=== PATIENT | male | born 1975 | race African-American/Black ===

== ENCOUNTER 2021-05-10 13:18 | Emergency (ER) | payer OTHER ==
[~2021-05-10] VITALS: Ht 188 cm; Wt 93.0 kg
[2021-05-10] MEDS ORDERED: ZOFRAN4 MG PO (13:30)
[2021-05-10] MEDS ORDERED: PROMETHAZINE-D473 M1 PO (13:30)
[2021-05-10] MEDS ORDERED: DEXAMETHASONE0.5 MG PO (13:31)
[2021-05-10] MEDS ORDERED: PROAIR HFA8.5 GM INH (13:31)
[2021-05-10 13:39] LABS: HEMATOCRIT 43.6 % (42.0-52.0); HEMOGLOBIN 14.8 gm/dL (14.0-18.0); MCH 29.1 pg (26.0-34.0); MCHC 33.9 g/dL (28.0-37.0); MCV 85.9 fL (80.0-100.0); MPV 8.3 fl. (7.2-11.1); NUCLEATED RBCS 0 /100WBC; PLATELET COUNT* 199 thou/uL (150-400); RBC 5.08 mil/uL (4.50-6.00); RDW-CV 13.9 % (10.5-14.5); WBC 12.5 thou/uL (4.0-11.0)
[2021-05-10 13:53] LABS: CALCIUM 8.7 mg/dL (8.5-10.1); CREATININE 1.2 mg/dL (0.6-1.3); POTASSIUM 3.9 mmol/L (3.5-5.1)
[2021-05-10 13:57] LABS: ALBUMIN 3.3 g/dL (3.4-5.0); TOTAL BILIRUBIN 0.6 mg/dL (<0.1-1.0); TOTAL PROTEIN 8.1 g/dL (6.4-8.2)
[2021-05-10 14:06] VITALS: BP 128/64
[2021-05-10 14:29] LABS: ABSOLUTE LYMPHOCYTES 0.6 thou/uL (0.8-5.3); ABSOLUTE MONOCYTES 0.3 thou/uL (0.0-1.2); ABSOLUTE NEUTROPHILS 11.6 thou/uL (1.6-8.1)
[2021-05-10 14:30] LABS: PLATELET ESTIMATE ADEQUATE
--- NOTE | 2021-05-11 09:02 | EKG ---
[place] [address] ELECTROCARDIOGRAM REPORT Name: CHRISTIANJEREMIAS R Room: [facility]#: [id number] Admission: 05/10/21 Attend Phys: Discharge: 05/10/21 Date of : 75 Date of Service: 05/10/21 1335 Report #: [id number] THIS REPORT FOR: //name// [facility] ED Test Date: 2021-05-10 Test Time: 13:35:06 Pat Name: JEREMIAS GONZALES Department: Room: Gender: [employer]: [employer]RAFT : 1975 Requested By: Beau Montero Order Number: [id number] MD: Amilcar Delgadillo Measurements Intervals [place] Rate: 82 P: 76 MI: 150 QRS: 41 QRSD: 83 T: 29 QT: 393 QTc: 459 Interpretive Statements Sinus rhythm Left atrial enlargement Left ventricular hypertrophy Abnormal T, consider ischemia, lateral leads ST elevation, consider anterior injury Baseline wander in lead(s) I,III,V5 No previous ECG available for comparison Electronically Signed On 05-11-2021 9:01:57 CDT by Amilcar Delgadillo [email or web address] <ELECTRONICALLY SIGNED> By: Amilcar Delgadillo MD, [facility] 05/11/21 0901 1335 1335 Amilcar Delgadillo MD, [facility] /EPI
== END 2021-05-10 14:07 | disposition home or self-care (01) ==
LOC: M.ERS 13:18
PROVIDERS: Nurse Practitioner Psychiatric/Mental Health
DX: U07.1 COVID-19 (principal); R06.02 Shortness of breath; R05 Cough; R11.0 Nausea; R53.1 Weakness; Z98.890 Other specified postprocedural states; Z79.51 Long term (current) use of inhaled steroids; Z79.899 Other long term (current) drug therapy